=== PATIENT | male | born 1990 | race American Indian/Alaskan Native ===

== ENCOUNTER 2018-10-26 05:25 | Emergency (ER) | payer SELFPAY ==
--- NOTE | 2018-10-26 05:38 | C.PDOC ---
History Of Present Illness 28 year old male is brought to the ED by EMS accompanied by girlfriend for evaluation. Patient was found in the bathroom [place] his [place] in the [place] vomiting and difficult to arouse. As per Girlfriend patient uses percocet on a daily basis. There is no evidence of trauma. Time Seen by Provider: 10/26/18 05:37 Chief Complaint (Nursing): Substance Abuse History Per: EMS History/Exam Limitations: clinical condition Onset/Duration Of Symptoms: Hrs Current Symptoms Are (Timing): Still Present Suicide/Self Injury Attempted (Context): Ingestion Modifying Factor(s): Narcotics Associated Symptoms: denies: Depression, Suicidal Thoughts, Suicidal Plan Additional History Per: EMS, Girlfriend Past Medical History Reviewed: Historical Data, Nursing Documentation, Vital Signs - Medical History PMH: No Chronic Diseases Surgical History: No Surg Hx Family History: States: Unknown Family Hx - Social History Hx Tobacco Use: No Hx Alcohol Use: No Hx Substance Use: Yes Review Of Systems Review Of Systems: ROS cannot be obtained secondary to pt's inabilty to answer questions. Physical Exam - Physical Exam Appears: Non-toxic, Other (lethargic ) Skin: Warm, Dry Head: Normacephalic Eye(s): bilateral: Normal Inspection Neck: Supple Chest: Symmetrical Cardiovascular: Rhythm Regular Respiratory: No Rales, No Rhonchi, No Wheezing Gastrointestinal/Abdominal: Soft, No Tenderness, No Guarding, No Rebound Extremity: Bilateral: Atraumatic, Normal Color And Temperature, Normal ROM Neurological/Psych: Other (lethargic but arousable) Gait: Unable To Assess ED Course And Treatment - Laboratory Results Result Diagrams: 10/26/18 06:04 10/26/18 06:04 ECG: Interpreted By Me, Viewed By Me ECG Rhythm: Sinus Rhythm (67), Nonspecific Changes (early repol) O2 Sat by Pulse Oximetry: 100 (ON RA ) Pulse Ox Interpretation: Normal Disposition - Disposition Disposition Time: 07:07 Condition: FAIR Forms: [facility] (Somali) - Clinical Impression Clinical Impression: Drug abuse - Scribe Statement The provider has reviewed the documentation as recorded by the Scribe Mayur Adame All medical record entries made by the Scribe were at my direction and personally dictated by me. I have reviewed the chart and agree that the record accurately reflects my personal performance of the history, physical exam, medical decision making, and the department course for this patient. I have also personally directed, reviewed, and agree with the discharge instructions and disposition. Physician Patient Turnover Patient Signed Over To: Sonya Anaya Handoff Comments: pending re-eval and dispo
[2018-10-26] MEDS ORDERED: Sodium Chloride 0.9% 1,000 ML IV ONE (05:53)
[2018-10-26 06:08] LABS: BASO % 0.1 % (0.0-2.0); EOS # 0.1 K/uL (0.0-0.7); EOS % 0.3 % (0.0-4.0); HEMOGLOBIN 11.7 g/dL (12.0-18.0); LYMPH # 3.2 K/uL (1.0-4.3); LYMPH % 17.4 % (20.0-40.0); MEAN CELL VOLUME 90.8 fL (80.0-94.0); MEAN CORPUSCULAR HEMOGLOBIN 30.4 pg (27.0-31.0); MEAN CORPUSCULAR HGB CONC 33.5 g/dL (33.0-37.0); MEAN PLATELET VOLUME 8.3 fL (7.2-11.7); MONO # 0.6 K/uL (0.0-0.8); NEUT # 14.5 K/uL (1.8-7.0); NEUT % 79.2 % (50.0-75.0); RBC 3.85 Mil/uL (4.40-5.90); RED CELL DISTRIBUTION WIDTH 14.1 % (11.5-14.5); WHITE BLOOD COUNT 18.3 K/uL (4.8-10.8)
[2018-10-26 06:16] LABS: SQUAMOUS EPITHIAL < 1 /hpf (0-5); URINE BACTERIA RARE (<OCC); URINE BILIRUBIN NEGATIVE (NEGATIVE); URINE BLOOD 1+ (NEGATIVE); URINE CLARITY Hazy (Clear); URINE COLOR Yellow (YELLOW); URINE GLUCOSE (UA) NORMAL (Normal); URINE LEUKOCYTE ESTERASE NEG Leu/uL (Negative); URINE PROTEIN NEGATIVE (NEGATIVE)
[2018-10-26 06:24] LABS: ALB/GLOB RATIO 1.7 (1.0-2.1); ALBUMIN 4.7 g/dL (3.5-5.0); BLOOD UREA NITROGEN 11 mg/dL (9-20); CALCIUM 9.3 mg/dl (8.6-10.4); GFR NON-AFRICAN AMERICAN > 60
[2018-10-26 06:29] LABS: ALT/SGPT 22 U/L (21-72); AST/SGOT 27 U/L (17-59)
[2018-10-26 06:34] LABS: BARBITURATES, UR NEGATIVE (NEGATIVE); BENZODIAZEPINES, UR NEGATIVE (NEGATIVE); PHENCYCLIDINE, UR NEGATIVE (NEGATIVE)
[2018-10-26 06:37] LABS: OPIATES, UR POSITIVE (NEGATIVE)
[2018-10-26 07:08] VITALS: O2SAT 100
[2018-10-26 08:34] VITALS: BP 116/71; PULSE 64; RESP 24
[2018-10-26 09:33] VITALS: TEMP 98.8
[2018-10-26] MEDS ORDERED: Aluminum Hydroxide/Magnesium Hydroxide Susp (30 mL) PO STA (09:54)
[2018-10-26] MEDS ORDERED: Aluminum Hydroxide/Magnesium Hydroxide Susp (30 mL) ONE (09:54)
--- NOTE | 2018-10-29 19:33 | CARD ---
APPROVED REPORT Date of service: 10/26/2018 EKG Measurement Heart [id number] [id number] [id number] <Conclusion> Sinus rhythm with premature atrial complexes Minimal voltage criteria for LVH, may be normal variant ST elevation, consider early repolarization, pericarditis, or injury Abnormal ECG
== END 2018-10-26 10:46 | disposition home or self-care (01) ==
LOC: C.ER 05:25
DX: F19.10 Other psychoactive substance abuse, uncomplicated (principal)
CPT/HCPCS: 80053; 81001; 82948; 83735; 84100; 85025; 93005; 96361; 96374; 96375; 99285; G0480; J1885; J2405; J2765; J7030